=== PATIENT | male | born 1955 | race Caucasian/White ===

== ENCOUNTER → 2019-08-03 11:08 | Outpatient (CLI) | payer OTHER, SELFPAY ==
[2019-08-03 12:05] VITALS: PULSE 86; PULSE 90
== END ==
PROVIDERS: PCP Family Medicine; Visit Provider Physician Assistant
DX: R06.2 Wheezing (principal)
CPT/HCPCS: 94060; 94640; 94727; 94729

== ENCOUNTER 2022-03-28 08:28 | Emergency (ER) | payer OTHER, SELFPAY ==
[2022-03-28 08:33] VITALS: BP 143/77; PULSE 74; O2SAT 95
--- NOTE | 2022-03-28 08:33 | PC.NURSE ---
CARINA Orozco at BS
[2022-03-28 08:35] VITALS: BP 143/77; PULSE 72; RESP 20; TEMP 36.6; O2SAT 96; BMI 38.0
--- NOTE | 2022-03-28 08:39 | XR_ITS ---
FINAL REPORT CLINICAL HISTORY: pain- injured doing yard work FINDINGS: Three views of the right knee reveal no evidence of fracture or dislocation. The bony alignment is normal. The joint spaces are preserved. There is no evidence of joint effusion. No localized soft tissue abnormality is identified. IMPRESSION: No acute abnormality identified. Reviewed, Interpreted and Dictated by Vargas Webb III, MD Transcribed by Bartolo Szymanski Authenticated by Vargas Webb III, MD on 03/28/2022 10:15:[address] [facility]
--- NOTE | 2022-03-28 08:50 | HMH.EDGENADL ---
ED Disposition Clinical Impression: Right knee sprain Qualifiers: Encounter type: initial encounter Involved ligament of knee: unspecified ligament Qualified Code(s): S83.91XA - Sprain of unspecified site of right knee, initial encounter Disposition: Home, Self-Care Condition on Discharge: Good Instructions: DI for Knee Sprain Prescriptions: Ibuprofen [Ibuprofen 800mg Tablet] 800 mg PO TIDP PRN #20 tab PRN Reason: Moderate Pain Transmission Status: Pending to [facility] methocarbamoL [Methocarbamol 500mg Tablet] 1,000 mg PO TID 10 Days #60 tab Transmission Status: Pending to [facility] Referrals: Gerard Coleman MD [Primary Care Provider] - - Critical Care Critical Care Time: No Attestation: On 03/28/22, the high probability of a clinically significant, sudden or life threatening deterioration of the following system(s) required my full and direct attention, intervention and personal management. The time I documented below is in addition to time spent performing reported procedures but includes the following listed in this critical care notation. Medical Decision Making - Medical Records Medical records reviewed: Yes: I reviewed the patient's medical records. - Aditya Inquiry Pt receiving controlled substance: Yes Aditya was queried for this patient: Yes Reference #:: [id number] Risks and benefits of using a controlled substance: were discussed with pt by me Vital Signs: 03/28/22 08:33 03/28/22 08:35 03/28/22 09:00 Temperature 97.8 F Temperature Source Oral Pulse Rate 74 74 Pulse Rate [Left Radial] 72 Respiratory Rate 20 Blood Pressure 143/77 H 118/82 Blood Pressure [Right Arm] 143/77 H Blood Pressure Mean 99 95 Blood Pressure Mean [Right Arm] 99 02 Sat by Pulse Oximetry 95 96 94 L Oxygen Delivery Method Room Air 03/28/22 09:53 Temperature Temperature Source Pulse Rate 72 Pulse Rate [Left Radial] Respiratory Rate Blood Pressure 120/86 Blood Pressure [Right Arm] Blood Pressure Mean 98 Blood Pressure Mean [Right Arm] 02 Sat by Pulse Oximetry 96 Oxygen Delivery Method Orders (Tests/Meds): ED MEDICATIONS Discontinued Medications Generic Name Dose Route Start Last Admin Trade Name Freq PRN Reason Stop Dose Admin Hydrocodone Bitart/Acetaminophen 1 tab 03/28/22 08:45 03/28/22 09:17 Apap/Hydrocodone 325mg/7.5mg Tab PO 03/28/22 08:46 1 tab ONCE ONE Administration - Radiology Data #1 Image(s): Knee Image Reviewed: Yes I reviewed the patient's radiology results, Yes I reviewed the patient's radiology image, Yes I have reviewed radiologist's interpretation Preliminary Findings: Normal/NAD, No Fracture Seen - Reevaluation(s) Time: 10:17 Reevaluation #1: On reevaluation, the patient is feeling better. X-ray did not show any acute fracture. Findings insistent with knee sprain. Patient will follow up with orthopedics and PCP. Given strict return precautions. Verbalized understanding. Medical Decision Narrative: 66-year-old male presented to the emergency department right knee pain. Findings consistent with a sprain. Imaging obtained. Patient provided analgesics. General Adult HPI - General Chief complaint: PAIN Stated complaint: right knee pain Time Seen by Provider: 03/28/22 08:40 Mode of Arrival: Ambulatory Limitations: No Limitations Description of Symptoms (Recalled from ER Triage Doc. by RN): pt to ed c/o right knee pain. pt states she was working in the yard yesterday and pivoted his knee and heard a pop. pt states he has been having pain in the back of his right knee. pt denies any previous injury or hardward to the affected knee. - History of Present Illness HPI narrative: Is a 66-year-old male presented to the emergency department with some right knee pain. The patient states that he was working on the yard yesterday when he excellently twisted his knee. He felt a pop in the area.
[2022-03-28 09:00] VITALS: BP 118/82; PULSE 74; O2SAT 94
--- NOTE | 2022-03-28 09:20 | PC.NURSE ---
notified rad of xray order
--- NOTE | 2022-03-28 09:50 | PC.NURSE ---
pt ambulatory back from Radiology; no complications
[2022-03-28 09:53] VITALS: BP 120/86; PULSE 72; O2SAT 96
--- NOTE | 2022-03-28 09:59 | PC.NURSE ---
Asked if patient would like ice for his knee, he declined
[2022-03-28 10:45] VITALS: BP 105/68; PULSE 70; RESP 18; TEMP 36.6; O2SAT 97
== END 2022-03-28 10:46 | disposition home or self-care (01) ==
PROVIDERS: Emergency Provider Emergency Medicine; PCP Family Medicine
DX: S83.91XA Sprain of unspecified site of right knee, initial encounter (principal); X50.1XXA Overexertion from prolonged static or awkward postures, initial encounter
CPT/HCPCS: 73562; 99283

== ENCOUNTER → 2022-12-06 09:02 | Outpatient (CLI) | payer OTHER, SELFPAY ==
--- NOTE | 2022-12-06 | CA_ITS ---
APPROVED REPORT Exam: Exercise Treadmill Technologist: Eve Mata, Ht: 6 ft 0 in Wt: 289 lbs BSA: 2.49 m2 HR: 115 bpm BP: 175/104 mmHg Medical History Medications: Levothyroxine,,,,, Metformin,,,,, Gabapentin,,,,, Montelukast,,,,, RoSUVASTATIN,,,,, Co Q10,,,,, Vascepa,,,,, Stress Test Details Test: Trever HR Resting HR: 110 bpm Max Heart Rate (APMHR): 155 bpm Max HR Achieved: 162 bpm Target HR (85% APMHR): 132 bpm % of APMHR: 105 Recovery HR: 108 bpm BP Resting BP: 141.0/91.0 mmHg Max BP: 192.0/90.0 mmHg Recovery BP: 155.0/86.0 mmHg ECG Clinical Exercise duration: 04:18 min Highest Stage Achieved: II Exercise capacity: 7.0 METs Stress ECG Conclusion Symptoms: SOA & fatigue w/ exercise. no chest pain Arrhythmias/Ectopy: 3 beat run v-tach with peak exercise No ST or J point changes at peak exercise, however, VT run is concerning... recommend imaging study Test Summary REST . . . . . . . Standing REST 43:58 0.0 0.0 110 . 141/ 91 . . Stage 1 01:00 10.0 1.7 132 . . . . Stage 1 02:00 10.0 1.7 149 . 192/ 90 . . Stage 1 03:00 10.0 1.7 155 . 192/ 90 . . Stage 2 01:00 12.0 2.5 159 . . . . Stage 2 01:18 12.0 2.5 162 . . . Stop exercise at 04:18 RECOVERY 01:00 0.0 0.0 150 . 132/ 78 . . RECOVERY 02:00 0.0 0.0 126 . 132/ 78 . . RECOVERY 03:00 0.0 0.0 117 . 167/117 . . RECOVERY 04:00 0.0 0.0 109 . 164/ 95 . . RECOVERY 05:00 0.0 0.0 108 . 164/ 95 . . RECOVERY 05:13 0.0 0.0 105 . 155/ 86 . . Electronically signed by : Sanju Collado MD 12/06/2022 17:29:20
== END ==
PROVIDERS: PCP Family Medicine; Visit Provider Family Medicine
DX: R53.83 Other fatigue (principal); R06.09 Other forms of dyspnea
CPT/HCPCS: 93017

== ENCOUNTER 2023-03-22 09:45 | Emergency (ER) | payer OTHER, SELFPAY ==
[2023-03-22 09:46] VITALS: BP 150/72; PULSE 65; RESP 20; O2SAT 97; BMI 39.3
--- NOTE | 2023-03-22 09:48 | HMH.EDGENADL ---
Discharge Plan Disposition Patient Disposition: Home, Self-Care Condition: Good Prescriptions Prescriptions: New hydrocodone-acetaminophen 5-325 mg tablet 1 tab PO Q6H PRN (Reason: pain) 3 Days Qty: 12 0RF tamsulosin [Flomax] 0.4 mg capsule 0.4 mg PO DAILY 7 Days Qty: 7 0RF ondansetron 4 mg tablet,disintegrating 4 mg PO Q6H PRN (Reason: nausea and vomiting) 5 Days Qty: 20 0RF No Action glimepiride 2 mg tablet 2 mg PO DAILY gabapentin 100 mg capsule 200 mg PO HS Label Comments: TAKE TWO CAPSULES BY MOUTH EVERY DAY AT BEDTIME MAY CAUSE DROWSINESS metformin 500 mg tablet extended release 24 hr 500 mg PO DAILY rosuvastatin 40 mg tablet 40 mg PO DAILY Label Comments: TAKE ONE TABLET BY MOUTH EVERY DAY budesonide-formoterol [Symbicort] 80-4.5 mcg/actuation HFA aerosol inhaler 1 inh inhalation HS levocetirizine 5 mg tablet 5 mg PO DAILY ibuprofen 800 MG tablet 800 mg PO TIDP PRN (Reason: Moderate Pain) Qty: 20 0RF Referrals Follow up/Referrals: George Newsome MD [Primary Care Provider] - See instructions Activity Restrictions/Add. Instructions Additional Instructions/Restrictions: Follow-up with Dr. Case as instructed. Return to the emergency department with worsening pain that is intractable or fevers or feeling ill. Additionally follow-up with your primary care doctor regarding your creatinine as discussed. Clinical Impressions Clinical Impression: Hydronephrosis with renal and ureteral calculus obstruction, Renal insufficiency Instructions Patient Instructions: DI for Acute Abdominal Pain Discharge ED Provider: Aliya Cortez General Adult HPI General Chief complaint: Abdominal Pain Stated complaint: possible kidney stones Time Seen by Provider: 03/22/23 09:48 History of Present Illness HPI narrative: Patient is a 67-year-old male presenting with symptoms that he believes are from a kidney stone. He states he has a known history of nephrolithiasis followed by Dr. Ruslan Hu and has had to have lithotripsy in the past. He states that his pain began on Saturday has been intermittent and now with severe this morning having some cold chills associated with it. No objective fever. No hematuria from history no burning dysuria or urinary urgency or frequency. No alternative diagnosis has been given in the past. Pain is moderate to severe at the moment. Related Data Home Medications Medication Instructions Recorded Confirmed budesonide-formoterol HFA 80 1 inh inhalation HS 02/27/23 02/27/23 mcg-4.5 mcg/actuation aerosol inhaler (Symbicort) gabapentin 100 mg capsule 200 mg PO HS 02/27/23 02/27/23 glimepiride 2 mg tablet 2 mg PO DAILY 02/27/23 02/27/23 levocetirizine 5 mg tablet 5 mg PO DAILY 02/27/23 02/27/23 metformin 500 mg tablet,extended 500 mg PO DAILY 02/27/23 02/27/23 release 24 hr rosuvastatin 40 mg tablet 40 mg PO DAILY 02/27/23 02/27/23 Previous Rx's Medication Instructions Recorded ibuprofen 800 mg tablet 800 mg PO TIDP PRN Moderate Pain 03/28/22 #20 tabs hydrocodone 5 mg-acetaminophen 325 1 tab PO Q6H PRN pain 3 days #12 03/22/23 mg tablet tabs ondansetron 4 mg disintegrating 4 mg PO Q6H PRN nausea and 03/22/23 tablet vomiting 5 days #20 tabs tamsulosin 0.4 mg capsule (Flomax) 0.4 mg PO DAILY 7 days #7 caps 03/22/23 Allergies Allergy/AdvReac Type Severity Reaction Status Date / Time No Known Allergies Allergy Verified 02/27/23 13:26 [facility] Disclaimer: The information contained in this section may have been updated after the patient was seen, as this information can be updated by other users. Medical History (Updated 03/22/23 @ 11:06 by Aliya Cortez MD) Abnormal result of cardiovascular function study Social History (Updated 02/27/23 @ 13:26 by Ines Vee) Smoking Status: Never smoker alcohol intake: current current occupational status: other details: self-farme
--- NOTE | 2023-03-22 09:53 | CT_ITS ---
FINAL REPORT TECHNIQUE: Axial images through the abdomen and pelvis were performed without contrast.This study was performed with techniques to keep radiation doses as low as reasonably achievable, (ALARA). Individualized dose reduction techniques using automated exposure control or adjustment of mA and/or kV according to the patient's size were employed. CLINICAL HISTORY: right flank pain hx of kidney stones FINDINGS: ABDOMEN: The lung bases demonstrate mild bibasilar atelectasis or scarring. The heart size is normal. Limited images of the liver are unremarkable. The spleen is normal. No adrenal mass is identified. The aorta is normal in caliber. There is no significant free fluid or adenopathy. There is a 9 mm stone in the right renal pelvis with mild right hydronephrosis. A staghorn calculus is seen involving the mid and lower left kidney measuring up to 31 mm. There is a 53 mm mass in the lateral left kidney which is likely a cyst. PELVIS: The appendix is normal. There is no distal ureteral stone. The urinary bladder is unremarkable. There is no significant free fluid or adenopathy. Degenerative changes are noted of the spine. IMPRESSION: 9 mm stone in the right renal pelvis with mild right hydronephrosis. Staghorn calculus left kidney. Reviewed, Interpreted and Dictated by Vargas Webb III, MD Transcribed by Hazel Piedra Authenticated and [facility]
[2023-03-22 09:56] VITALS: TEMP 36.6
[2023-03-22 09:58] LABS: Microscopic, Urine URINE MICROSCOPIC (MICROSCOPIC)
[2023-03-22 10:03] LABS: Appearance,Urine CLEAR (Clear); Bilirubin,Urine Negative (Negative); Blood, Urine 3+ (Negative); Color,Urine YELLOW (Yellow); Glucose,Urine (UA) Negative (Negative); Ketones,Urine TRACE (Negative); Leukocyte Esterase,Urine 1+ (Negative); Nitrate,Urine Negative (Negative); Protein,Urine 2+ (Negative); Specific Gravity, Urine >= 1.030 (1.005-1.030)
[2023-03-22 10:22] LABS: Chloride 100 mmol/L (98-107); Potassium 5.1 mmoL/L (3.5-5.1); Sodium 140 mmol/L (136-145)
[2023-03-22 10:24] LABS: Basophils % 0.4 % (0.1-2.0); Eosinophils # 0.3 K/mm3 (0.0-0.4); Eosinophils % 2.8 % (0.1-12.0); Hematocrit 45.8 % (42.0-52.0); Hemoglobin 15.2 g/dL (14.1-18.0); Lymphocytes % 24.6 % (10-50); Mean Corpuscular HGB Conc 33.1 g/dL (31.8-35.4); Mean Corpuscular Hemoglobin 27.9 pg (27.0-31.2); Mean Corpuscular Volume 84.2 fl (80-94); Mean Platelet Volume 8.4 fl (7.4-10.4); Monocytes # 0.5 K/mm3 (0.1-1.0); Monocytes % 4.4 % (1.7-9.3); Neutrophils # 8.2 K/mm3 (1.8-7.8); Neutrophils % 67.8 % (37.0-80.0); Platelet Count 166 K/mm3 (142-424); Red Blood Count 5.44 M/mm3 (4.60-6.20); Red Cell Distribution Width 15.7 % (11.5-17.5); White Blood Count 12.1 K/mm3 (4.8-10.8)
[2023-03-22 10:25] LABS: Alanine Aminotransferase 28 U/L (12-78); Albumin Level 4.4 g/dl (3.5-5.0); Albumin/Globulin Ratio 1.3 (1.1-1.8); Alkaline Phosphatase 80 U/L (38-126); Anion Gap 15.1 mEq/L (5-15); Aspartate Amino Transferase 34 U/L (17-59); Bilirubin,Total 1.2 mg/dl (0.2-1.3); Blood Urea Nitrogen 23 mg/dl (9-20); Carbon Dioxide 30 mmol/L (22.0-30.0); Creatinine Clearance Estimated 76 mL/min (50-200); Estimated Glomerular Filt Rate 38 ml/min (>60); GFR (African American) 46 ML/MIN (>60); Globulin 3.5 g/dL (1.3-3.2); Total Protein,Serum 7.9 g/dl (6.3-8.2)
[2023-03-22 10:26] LABS: Calcium 9.8 mg/dl (8.4-10.2); Glucose 232 mg/dl (74-100)
[2023-03-22 10:30] VITALS: BP 113/66; PULSE 57; RESP 20; O2SAT 94
--- NOTE | 2023-03-22 10:35 | PC.NURSE ---
CHECKED ON PT NO COMPLAINTS
--- NOTE | 2023-03-22 10:36 | PC.NURSE ---
Rounded on patient; call stovall within reach
--- NOTE | 2023-03-22 10:36 | PC.NURSE ---
ER at updating pt on POC and results
--- NOTE | 2023-03-22 10:39 | PC.NURSE ---
requested a disc from radiology
[2023-03-22 10:43] LABS: Bacteria,Urine Trace /lpf; Squamous Epithelial Cell,Urine Occasional #/hpf (0-5); WBC,Urine Occasional #/hpf (0-3)
[2023-03-22 11:00] VITALS: BP 125/72; PULSE 66; RESP 20; O2SAT 94
[2023-03-22 11:30] VITALS: BP 125/72; PULSE 64; RESP 16; TEMP 36.8; O2SAT 95
--- NOTE | 2023-03-22 11:37 | PC.NURSE ---
MD speaking with pt
== END 2023-03-22 12:12 | disposition home or self-care (01) ==
PROVIDERS: Emergency Provider Student in an Organized Health Care Education/Training Program; PCP Family Medicine
DX: N13.2 Hydronephrosis with renal and ureteral calculous obstruction (principal); N28.9 Disorder of kidney and ureter, unspecified
CPT/HCPCS: 74176; 80053; 81001; 85025; 87086; 96361; 96374; 96375; 96376; 99285; J2405

== ENCOUNTER 2024-11-23 13:42 | Outpatient (CLI) | payer MEDICARE, SELFPAY | END 2024-11-23 23:59 | disposition home or self-care (01) | LOC: RT 13:43 | PROVIDERS: PCP Family Medicine; Visit Provider Nurse Practitioner Family | DX: I47.29 Other ventricular tachycardia (principal) | CPT/HCPCS: 93225; 93227 ==

== ENCOUNTER 2024-11-25 10:17 | Outpatient (CLI) | payer MEDICARE, SELFPAY | END 2024-11-25 23:59 | disposition home or self-care (01) | LOC: RT 10:19 | PROVIDERS: PCP Family Medicine; Visit Provider Nurse Practitioner Family | DX: I47.29 Other ventricular tachycardia (principal) | CPT/HCPCS: 93270 ==

== ENCOUNTER 2024-11-30 08:47 | Outpatient (CLI) | payer MEDICARE, SELFPAY ==
--- NOTE | 2024-11-30 08:48 | CT_ITS ---
APPROVED REPORT Electronic Warfare Technical: CLINICAL INDICATION Chest Pain TECHNIQUE Image Acquisition: A 128 slice MDCT scanner ([employer] Hel[employer] View) was used for data acquisition. A noncontrast coronary calcium scan was performed. A CT attenuation threshold of 130 Hounsfield units (HU) was used for the detection of calcium in contiguous voxels of 1 sq mm in area to be counted as individual lesions. Bolus tracking in the ascending aorta with a threshold of 180 HU was performed. Immediately afterwards, ECG synchronized cardiac CT was then performed from the cardiac base to apex using retrospective gating with ECG tube current modulation. A total of 85 mL of Isovue 370 mg/mL contrast medium was administered at 5 mL/sec followed by a saline flush using a biphasic injection protocol. A tube voltage of 120 KVp was used. The patient received the following medications prior to the cardiac CT. 100 mg of oral metoprolol 5 mg of intravenous metoprolol 15 mg of oral ivabradine 0.8 mg of sublingual nitroglycerin The average heart rate at the time of acquisition was 62 bpm and regular. Image Reconstruction Transaxial images were reconstructed at 0.67 mm slide thickness. Data was reviewed interactively on an advanced workstation capable of 2 and 3-dimensional displays in all conventional reconstruction formats, including multiplanar reformations, maximum intensity projections, curved multiplanar reformations, and volume rendered reconstructions. When applicable, selected routine images describing the relevant coronary anatomy and pathology were saved and sent to PACS. Complications None Technical Quality Overall image quality was good. Coronary artery opacification was adequate. Total DLP (Dose-Length Product) is 1535.6 mGy-cm. The reported value represents the total of one or more individual components during the CT acquisition of this date and at this time, and as such, the same value may appear in more than one CT report depending on the interpreting/reporting physicians. COMPARISON None FINDINGS CT Coronary Calcium Scoring LMA (Left Main Artery) = 0 LAD (Left Anterior Descending) = 82 LCX (Left Coronary Circumflex) = 0 RCA (Right Coronary Artery) = 0 Total Calcium Score = 82 using the AJ-130 method. The observed calcium score of 82 is at 47th percentile for subjects of the same age, sex, and race/ethnicity. The interpretation of the calcium heart score is based on the following continuum*: 0 = no calcified plaque detected (risk of coronary artery disease is very low ??? less than 5%) 1-10 = calcium detected in extremely minimal levels (risk of coronary diseases is still low ??? less than 10%) 11-100 = mild levels of plaque detected with certainty (mild or minimal narrowing of heart arteries is likely) 101-400 = definite,at least moderate levels of plaque detected (relatively high risk of a heart attack within 3-5 years) >401-999 = extensive levels of plaque detected (high risk of heart attack, high levels of vascular disease are present, high likelihood of at least one significant coronary narrowing) *The calcium heart score quantifies the burden of coronary calcification/plaque in the coronary arteries. The calcium heart score is not able to evaluate the presence or burden of non-calcified (i.e. soft) plaque. There is also calcification in the aortic valve and the transverse and descending thoracic aorta. Coronary CT Angiography The coronary arterial system is right dominant. Quantitative Stenosis Grading: Left Main (LM): The left main originates normally from the left sinus of Valsalva. The LM bifurcates into the left anterior descending artery and left circumflex artery. The LM is patent with no evidence of atherosclerosis. Left Anterior Descending (LAD) and Diagonal Branches: The LAD gives off 2 diagonal branch(es). There is calcified plaque in the proximal LAD segment, with < 25% luminal stenosis. There is no evidence of LAD-myocardial bridge. Left Circumflex (LCX) and Obtuse Marginals (OM): The LCX gives off 1 Obtuse Marginal (OM) branch(es). The LCX and its branches are patent with no evidence of atherosclerosis. Right Coronary Artery (RCA): The RCA originates normally from the right sinus of Valsalva. The RCA gives off a posterior descending artery (PDA) and posterolateral (PL) branches. The RCA and its branches are patent with no evidence of atherosclerosis. Non-Coronary Cardiac Findings: Analysis of the left ventricular (LV) structure and function was performed after 3-D reconstruction of the LV from axial images, with user-corrected automatic contouring for assessment of LV volumes and user-defined reconstruction from oblique planes for measurement of 3-D cardiac structure and function. -The left ventricle systolic function is normal. -There is no left atrial appendage filling defect. Two right pulmonary veins and two left pulmonary veins drain normally into the left atrium. -No pericardial thickening or calcification. -Central and branch pulmonary arteries in the [id number] are unremarkable. -Thoracic aorta within the visualized thoracic aortic-branches in the [id number] is unremarkable. Extracardiac Structures No significant extra-cardiac findings. Note, however, that this study is focused on the cardiac findings. IMPRESSION -Presence of coronary calcification with an Agatston score = 82 using the AJ-130 method. -The observed calcium score of 82 is at 47th percentile for subjects of the same age, sex, and race/ethnicity. -No evidence of significant flow-limiting atherosclerosis of the coronary arteries. -CAD-RADS 1. Management recommendations per ACC/AHA guidelines*, as clinically appropriate. *Recommendations: CAD RADS 0: Reassurance. Consider non-atherosclerotic causes of chest pain. CAD RADS 1: Consider non-atherosclerotic causes of chest pain. Consider preventive therapy and risk factor modification. CAD RADS 2: Consider non-atherosclerotic causes of chest pain. Consider preventive therapy and risk factor modification, particularly for patients with nonobstructive plaque in multiple segments. CAD RADS 3: Consider further functional testing. Consider symptom-guided anti-ischemic and preventive pharmacotherapy as well as risk factor modification per published guideline statements. CAD RADS 4A: Consider further functional testing or invasive coronary angiography with revascularization per published guideline statements. Consider symptom-guided anti-ischemic and preventive pharmacotherapy as well as risk factor modification per published guideline statements. CAD RADS 4B: Invasive coronary angiography recommended with revascularization per published guideline statements. Consider symptom-guided anti-ischemic and preventive pharmacotherapy as well as risk factor modification per published guideline statements. CAD RADS 5: Consider invasive angiography and/or viability assessment with revascularization per published guideline statements. Consider symptom-guided anti-ischemic and preventive pharmacotherapy as well as risk factor modification per published guideline statements. CRITICAL RESULT None COMMUNICATION Per this written report The coronary and cardiac findings of this CCTA were reviewed, reported, and signed by Ramón Pickett MD ([employer]) Conclusion Electronically signed by : Jasmina Pickett MD 12/01/2024 12:49:44
--- NOTE | 2024-11-30 08:48 | CA_ITS ---
APPROVED REPORT EXAM: Comprehensive 2D, Doppler, and color-flow Echocardiogram R Programmer: Julita Turcios RVT Ht: 6 ft 0 in Wt: 291lbs BSA: 2.50 BP: 132/66 mmHg Indications: SOA,HTN,DM,HLD,SVT 2D Dimensions LA Volume 34.20 mL LA Volume Index 13.68 mL/m2 (M/F) 16-34 M-Mode Dimensions RVDd 4.70 cm (0.9-2.6) LA Diam 3.60 cm (1.9-4.0) LVDd 4.32 cm (3.5-5.7) LVDs 2.68 cm (3.5-5.7) IVSd 0.94 cm (0.6-1.1) PWd 0.85 cm (0.6-1.1) EF (Teich) 68.50% FS 38.00% EDV (Teich) 84.00 mL ESV (Teich) 26.50 mL LV Diastology E Decel Time 183 (160-240 msec) E/A Ratio 0.6 Aortic Valve ENRIQUETA Index 1.75 cm2/m2 AoV Peak Armen. 108.0 (50-130 cm/s) AO Peak GR. 4.70 mmHg AO Mean GR. 2.50 (<5 mmHg) AO VTI 20.4 (18-25 cm) ENRIQUETA (VTI) 4.49 (2.5-4.5 cm2) Mitral Valve MV E Max Armen. 44.0 (40-130 cm/s) MV A Velocity 68.0 (40-130 cm/s) E/A Ratio 0.64 MV PHT 54.0 ms Pulmonary Valve PV Peak Velocity 55.0 (50-150 cm/s) Tricuspid Valve TR P. Velocity 215.00 cm/s RAP Estimate 10.00 mmHg RVSP 28.50 mmHg Left Ventricle The left ventricle is normal size. The left ventricular systolic function is normal. The left ventricular ejection fraction is within the normal range. There is increased LV wall thickness. There is normal LV segmental wall motion. The left ventricular diastolic function is normal. LVEF is 55%. Right Ventricle The right ventricle is not well-visualized, but likely appears to be at least mildly dilated with possibly mildly reduced RV systolic function. Atria The left atrium size is normal. The right atrium size is normal. The interatrial septum is not well-visualized. Aortic Valve The aortic valve opens well. There is no aortic valvular stenosis. No aortic regurgitation is present. Mitral Valve The mitral valve is normal in structure. No evidence of mitral valve stenosis. There is no mitral valve regurgitation noted. Tricuspid Valve The tricuspid valve leaflets are thin and pliable. Trace tricuspid regurgitation. There is insufficient TR jet to estimate RVSP. Pulmonic Valve The pulmonary valve is normal in structure. Trace pulmonic regurgitation. Great Vessels The aortic root is normal in size. The ascending aorta is not well-visualized. IVC is normal in size and collapses >50% with inspiration. Pericardium There is no pericardial effusion. Other Information Study Quality: Technically Difficult Conclusion Technically difficult study due to poor acoustic windows. Normal LV systolic function. RV not well-visualized, but appears to be likely at least mildly dilated with possibly mildly reduced RV systolic function. No significant valvular stenosis or regurgitation. Electronically signed by : Jasmina Pickett MD 12/06/2024 21:02:32
[2024-11-30 08:56] VITALS: BMI 39.3
[2024-11-30 09:05] VITALS: BP 121/91; PULSE 84; RESP 17; O2SAT 93
[2024-11-30] MEDS: METOPROLOL TARTRATE 50MG TABLET PO ×2 (09:13→10:00)
[2024-11-30] MEDS: IVABRADINE HCL 7.5MG TABLET PO (09:14)
[2024-11-30 09:46] LABS: NT Pro Brain Natriuretic Pep. 22.5 pg/mL (0-125)
[2024-11-30 10:01] LABS: Anion Gap 16.6 mEq/L (5-15); Blood Urea Nitrogen 29 mg/dl (9-20); Calcium 10.2 mg/dl (8.4-10.2); Carbon Dioxide 32 mmol/L (22.0-30.0); Chloride 97 mmol/L (98-107); Creatinine Clearance Estimated 78 mL/min (50-200); Estimated Glomerular Filt Rate 40 ml/min (>60); GFR (African American) 49 ML/MIN (>60); Glucose 229 mg/dl (74-100); Potassium 4.6 mmoL/L (3.5-5.1); Sodium 141 mmol/L (136-145)
[2024-11-30 10:40] VITALS: BP 121/78; PULSE 58; RESP 18; O2SAT 94
[2024-11-30] MEDS: NITROGLYCERIN 0.4MG SL TABLET SL (10:40)
[2024-11-30 10:45] VITALS: BP 109/74; PULSE 62; RESP 18; O2SAT 95
[2024-11-30 10:50] VITALS: BP 98/58; PULSE 65; RESP 18; O2SAT 95
[2024-11-30] MEDS: METOPROLOL TARTRATE 5MG/5ML VIAL 5 MG IV (10:50)
[2024-11-30 10:55] VITALS: BP 96/59; PULSE 60; RESP 18; O2SAT 95
[2024-11-30] MEDS: IOPAMIDOL-370 (76%);100ML BOTTLE 85 ML IV (10:56)
[2024-11-30] MEDS: 0.9 % SODIUM CHLORIDE 50 ML VIAL IV (10:56)
[2024-11-30] MEDS: SODIUM CHLORIDE 0.9% 10ML SYR (RAD ONLY) 10 ML IV (10:56)
[2024-11-30 11:00] VITALS: BP 96/64; PULSE 58; RESP 18; O2SAT 94
== END 2024-11-30 11:10 | disposition home or self-care (01) ==
PROVIDERS: PCP Family Medicine; Visit Provider Nurse Practitioner Family
DX: R94.30 Abnormal result of cardiovascular function study, unspecified (principal); R06.02 Shortness of breath; I47.29 Other ventricular tachycardia
CPT/HCPCS: 75574; 80048; 83880; 93306; Q9967